=== PATIENT | female | born 1955 | race Caucasian/White ===

== ENCOUNTER → 2017-10-17 | Day surgery (SDC) | payer OTHER ==
--- NOTE | 2017-10-20 13:12 | PATH ---
Surgical Pathology Report Patient Name: MELINA LOPEZ [facility]. Rec. #: [id number] /Age/Gender: 1955 (Age: 61) / F Account: [id number] Location: [facility] Taken: 10/17/2017 Received: 10/17/2017 Reported: 10/20/2017 Physicians: Asaf Dorantes M.D. 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 Electronically Signed Lindsay Hill M.D. Gross Description Received in formalin labeled "left breast core biopsy 4:00 4 cm FN" are multiple carroll to yellow cylindrical portions of fibroadipose tissue ranging from 0.2-1 cm in length and averages 0.2 cm in diameter, measuring aggregate 0.7 x 0.7 x 0.1 cm. The specimen is entirely submitted in 2 cassettes. Time tissue taken at 11:20 Time tissue placed in formalin 11:22 KIM/10/18/2017 jannet10/18/2017
== END | disposition home or self-care (01) ==
LOC: FRADUS-SUR 10:03
PROVIDERS: ATTEND Surgery Surgical Oncology
PROC: 0HBU3ZX Excision of Left Breast, Percutaneous Approach, Diagnostic (ICD-10-PCS; principal; 2017-10-17)
DX: D24.2 Benign neoplasm of left breast (principal); N60.32 Fibrosclerosis of left breast; N60.22 Fibroadenosis of left breast; N60.82 Other benign mammary dysplasias of left breast; N64.89 Other specified disorders of breast; N63.23 Unspecified lump in the left breast, lower outer quadrant
CPT/HCPCS: 19083; 77065-TC; 87899; 88305-TC; A4648